=== PATIENT | female | born 1970 | race Caucasian/White ===

== ENCOUNTER 2020-05-07 16:06 | Emergency (ER) | payer BC ==
[2020-05-07] MEDS ORDERED: Ondansetron PF 4 MG/2 ML Vial ONE (16:38)
[2020-05-07] MEDS ORDERED: Glycopyrrolate 0.4 MG/ 2 ML VIAL ONE (16:49)
[2020-05-07] MEDS ORDERED: Famotidine In NaCl 20 mg/50 ml Premix Bag ONE (16:49)
== END 2020-05-07 18:20 | disposition home or self-care (01) ==
LOC: BURERS 16:06
DX: R11.2 Nausea with vomiting, unspecified (principal); R19.7 Diarrhea, unspecified; K21.9 Gastro-esophageal reflux disease without esophagitis; J45.909 Unspecified asthma, uncomplicated
CPT/HCPCS: 96365; 96375; J2405